=== PATIENT | male | born 1955 | race Caucasian/White ===

== ENCOUNTER 2017-04-07 05:55 | Emergency (ER) | payer OTHER ==
[~2017-04-07] VITALS: Ht 193 cm; Wt 127.0 kg
[~2017-04-07 05:55] MED LIST: ALBIPROI; ALBU.083IS; ALBU.083IS IH; ALBU90OI; ALBU90OI INH; ALBU90OI61 INH; ALUPENT; ATOR40TA PO; AZIT250 PO; AZIT500; BISA5EC PO; BUPR150ER; CEFD300 PO; CEPH500 PO; CITA20 PO; COMBIVENT; COMBIVENT RESPIM4 GM IH; CRUTCH3 USE; CYCL10 PO; CYPR4 PO; DESOX.05TG TOP; DIAZ5 PO; DOXY100 PO; Epipen0.3 MG/0.3 IM; FLUSAL5005; FOLI1 PO; Flonase 0.05% N16 GM; GUAI600T33 PO; HYDACE10B; HYDACE25S PR; HYDACE5 PO; HYDCOR2.5C PR; HYDR1TAB94 PO; IPRAOI INH; LINZESS145 MCG PO; MARIJUANA; METAOI; METAOI IH; METO50ER PO; NAPR500 PO; NEBULIZ; Norco 5-325 Ta1 EACH PO; OXYACE5T PO; OXYACE7.5T PO; OXYC5; OXYGEN; PRED10 PO; PRED20; PRED20 PO; PROCODE120 PO; Prednisone10 MG PO; Prednisone20 MG PO; Prednisone50 MG PO; RAMI5 PO; RANI150; TAMS.4ER PO; THEO200ERC PO; THEO400; THIA100 PO; Zithromax250 MG PO; Zithromax500 MG PO
[2017-04-07] MEDS ORDERED: Prednisone20 MG PO (07:00)
[2017-04-07] MEDS ORDERED: Norco 10-325 T1 EACH PO (07:00)
[2017-04-07] MEDS ORDERED: Zithromax250 MG PO (07:00)
== END 2017-04-07 07:37 | disposition home or self-care (01) ==
LOC: ER 05:55
DX: J44.1 Chronic obstructive pulmonary disease with (acute) exacerbation (principal); I10 Essential (primary) hypertension; F17.200 Nicotine dependence, unspecified, uncomplicated; J06.9 Acute upper respiratory infection, unspecified; Z88.8 Allergy status to other drugs, medicaments and biological substances; Z91.038 Other insect allergy status; Z79.899 Other long term (current) drug therapy; Z99.81 Dependence on supplemental oxygen
CPT/HCPCS: 71046; 99284

== ENCOUNTER 2017-11-10 09:00 | Emergency (ER) | payer OTHER ==
[~2017-11-10] VITALS: Ht 193 cm; Wt 119.8 kg
[~2017-11-10 09:00] MED LIST changes: +Norco 10-325 T1 EACH PO
[2017-11-10 09:59] LABS: BASOPHILS ABSOLUTE AUTO 0.07 K/mm3 (0.00-0.23); BASOPHILS PERCENT AUTO 2 % (0-2); EOSINOPHILS ABSOLUTE AUTO 0.49 K/mm3 (0.00-0.68); EOSINOPHILS PERCENT AUTO 11 % (0-6); Hemoglobin 15.1 g/dL (13.5-17.5); IMMATURE GRAN ABSOLUTE AUTO 0.01 K/mm3 (0.00-0.10); IMMATURE GRAN PERCENT AUTO 0 % (0-1); LYMPHOCYTES ABSOLUTE AUTO 1.37 K/mm3 (0.84-5.20); LYMPHOCYTES PERCENT AUTO 30 % (21-46); MONOCYTES ABSOLUTE AUTO 0.43 K/mm3 (0.16-1.47); MONOCYTES PERCENT AUTO 9 % (4-13); Mean Corpuscular HGB 33.3 pg (26.0-34.0); Mean Corpuscular HGB Conc 34.3 g/dL (31.5-36.5); Mean Corpuscular Volume 97 fL (80-100); NEUTROPHILS ABSOLUTE AUTO 2.26 K/mm3 (1.96-9.15); NEUTROPHILS PERCENT AUTO 49 % (41-73); Platelet Count 187 K/mm3 (150-400); RDW Coefficient Variation 12.1 % (11.7-14.2); Red Blood Cell Count 4.53 M/mm3 (4.30-5.90); White Blood Cell Count 4.63 K/mm3 (4.00-11.30)
[2017-11-10 10:18] LABS: Alanine Aminotransfer (ALT/SGP 31 U/L (12-78); Albumin, Blood 3.7 g/dL (3.4-5.0); Albumin/Globulin Ratio 1.2 (0.8-1.8); Alk Phos 90 U/L (50-136); Anion Gap 6 mmol/L (6-16); Aspartate Aminotrans (AST/SGOT 16 U/L (12-37); Bilirubin, Total 0.6 mg/dL (0.1-1.0); Blood Urea Nitrogen 10 mg/dL (8-24); Bun/Creatinine Ratio 16.3 (12.0-20.0); CO2, Blood 24 mmol/L (21-32); Calcium, Blood 8.4 mg/dL (8.5-10.1); Chloride, Blood 110 mmol/L (98-108); Creatinine, Blood 0.61 mg/dL (0.60-1.20); Globulin, Blood 3.1 g/dL (2.2-4.0); Glomerular Filtration Rate >60 (60-); Glucose, Blood 92 mg/dL (70-99); Sodium, Blood 140 mmol/L (136-145); Total Protein, Blood 6.8 g/dL (6.4-8.2)
[2017-11-10 11:38] LABS: Troponin I <0.015 ng/mL (0.000-0.040)
[2017-11-10] MEDS ORDERED: Zithromax250 MG PO (11:53)
[2017-11-10] MEDS ORDERED: Prednisone20 MG PO (11:53)
== END 2017-11-10 11:58 | disposition home or self-care (01) ==
LOC: ER 09:00
PROVIDERS: Emergency Medicine
DX: J44.1 Chronic obstructive pulmonary disease with (acute) exacerbation (principal); F17.210 Nicotine dependence, cigarettes, uncomplicated; Z88.8 Allergy status to other drugs, medicaments and biological substances; Z79.899 Other long term (current) drug therapy
CPT/HCPCS: 36415; 71045; 80053; 83880; 84484; 85025; 93005; 93010; 94640; 96374; 99285-25; J2930

== ENCOUNTER 2018-08-05 04:24 | Emergency (ER) | payer OTHER ==
[~2018-08-05] VITALS: Ht 188 cm; Wt 99.8 kg
[2018-08-05] MEDS ORDERED: Flector1 EACH TD (05:21)
== END 2018-08-05 05:41 | disposition home or self-care (01) ==
LOC: ER 04:24
DX: M54.6 Pain in thoracic spine (principal); M54.5 Low back pain; Z88.8 Allergy status to other drugs, medicaments and biological substances; Z79.899 Other long term (current) drug therapy; J44.9 Chronic obstructive pulmonary disease, unspecified; F17.210 Nicotine dependence, cigarettes, uncomplicated
CPT/HCPCS: 99283; A9270-GY

== ENCOUNTER 2018-09-06 18:59 | Emergency (ER) | payer OTHER ==
[~2018-09-06] VITALS: Ht 193 cm; Wt 127.0 kg
[~2018-09-06 18:59] MED LIST changes: +Flector1 EACH TD
[2018-09-06] MEDS ORDERED: FURO20 PO (20:11)
[2018-09-06] MEDS ORDERED: BENADRYL25 MG PO (20:15)
[2018-09-06] MEDS ORDERED: Pepcid20 MG PO (20:15)
[2018-09-16] MEDS ORDERED: THEO300ERA PO (10:48)
[2018-09-16] MEDS ORDERED: COMBIVENT RESPIM4 GM (10:48)
[2018-09-16] MEDS ORDERED: ALBU2.5V5 (10:48)
[2018-09-16] MEDS ORDERED: ALBU90OI (10:48)
[2018-09-16] MEDS ORDERED: PREG75 (10:49)
[2018-09-16] MEDS ORDERED: AMLO5 PO (10:49)
[2018-09-16] MEDS ORDERED: BUDE6HFA INH (10:49)
[2018-09-16] MEDS ORDERED: COMBIVENT RESPIM4 GM INH (10:49)
[2018-09-16] MEDS ORDERED: Flonase 0.05% N16 GM (10:49)
[2018-09-16] MEDS ORDERED: EPIPEN0.3 MG/0.3 (10:49)
== END 2018-09-06 20:25 | disposition home or self-care (01) ==
LOC: ER 18:59
DX: L23.7 Allergic contact dermatitis due to plants, except food (principal); Z88.8 Allergy status to other drugs, medicaments and biological substances; F17.210 Nicotine dependence, cigarettes, uncomplicated
CPT/HCPCS: 96372; 99282-25; J3301; Q0163

== ENCOUNTER 2018-09-08 07:04 | Emergency (ER) | payer OTHER ==
[~2018-09-08] VITALS: Ht 193 cm; Wt 127.0 kg
[~2018-09-08 07:04] MED LIST changes: +BENADRYL25 MG PO; +FURO20 PO; +Pepcid20 MG PO
[2018-09-16] MEDS ORDERED: ALBU90OI (10:48)
[2018-09-16] MEDS ORDERED: COMBIVENT RESPIM4 GM (10:48)
[2018-09-16] MEDS ORDERED: THEO300ERA PO (10:48)
[2018-09-16] MEDS ORDERED: ALBU2.5V5 (10:48)
[2018-09-16] MEDS ORDERED: PREG75 (10:49)
[2018-09-16] MEDS ORDERED: BUDE6HFA INH (10:49)
[2018-09-16] MEDS ORDERED: AMLO5 PO (10:49)
[2018-09-16] MEDS ORDERED: EPIPEN0.3 MG/0.3 (10:49)
[2018-09-16] MEDS ORDERED: Flonase 0.05% N16 GM (10:49)
[2018-09-16] MEDS ORDERED: COMBIVENT RESPIM4 GM INH (10:49)
== END 2018-09-08 08:35 | disposition home or self-care (01) ==
LOC: ER 07:04
DX: L23.7 Allergic contact dermatitis due to plants, except food (principal); J44.9 Chronic obstructive pulmonary disease, unspecified; F17.210 Nicotine dependence, cigarettes, uncomplicated
CPT/HCPCS: 94640; 99283-25; Q0163

== ENCOUNTER 2018-09-23 11:09 | Day surgery (SDC) | payer OTHER ==
[~2018-09-23] VITALS: Ht 193 cm; Wt 124.6 kg
[~2018-09-23 11:09] MED LIST changes: +ALBU2.5V5; +AMLO5 PO; +BUDE6HFA INH; +COMBIVENT RESPIM4 GM; +COMBIVENT RESPIM4 GM INH; +EPIPEN0.3 MG/0.3; +PREG75; +THEO300ERA PO
== END 2018-09-23 13:45 | disposition home or self-care (01) ==
LOC: ORSCSDS 11:09
PROVIDERS: Internal Medicine Gastroenterology
PROC: 0DBM8ZX Excision of Descending Colon, Via Natural or Artificial Opening Endoscopic, Diagnostic (ICD-10-PCS; principal; 2018-09-23 12:45)
PROC: 0DBK8ZX Excision of Ascending Colon, Via Natural or Artificial Opening Endoscopic, Diagnostic (ICD-10-PCS; principal; 2018-09-23 12:45)
PROC: 0DBP8ZX Excision of Rectum, Via Natural or Artificial Opening Endoscopic, Diagnostic (ICD-10-PCS; principal; 2018-09-23 12:45)
DX: Z12.11 Encounter for screening for malignant neoplasm of colon (principal); D12.2 Benign neoplasm of ascending colon; D12.4 Benign neoplasm of descending colon; K62.1 Rectal polyp; K64.8 Other hemorrhoids; K57.30 Diverticulosis of large intestine without perforation or abscess without bleeding; Z86.010 Personal history of colon polyps; Z83.71 Family history of colonic polyps; J44.9 Chronic obstructive pulmonary disease, unspecified; G47.33 Obstructive sleep apnea (adult) (pediatric); K21.9 Gastro-esophageal reflux disease without esophagitis; F17.210 Nicotine dependence, cigarettes, uncomplicated; I10 Essential (primary) hypertension; Z79.899 Other long term (current) drug therapy
CPT/HCPCS: 88305; J2704; J7120

== ENCOUNTER 2018-12-23 12:49 | Emergency (ER) | payer OTHER ==
[~2018-12-23] VITALS: Ht 193 cm; Wt 127.0 kg
[2018-12-23 13:27] LABS: BASOPHILS ABSOLUTE AUTO 0.06 K/mm3 (0.00-0.23); BASOPHILS PERCENT AUTO 1 % (0-2); EOSINOPHILS ABSOLUTE AUTO 0.23 K/mm3 (0.00-0.68); EOSINOPHILS PERCENT AUTO 2 % (0-6); Hematocrit 48.7 % (37.0-53.0); Hemoglobin 16.4 g/dL (13.5-17.5); IMMATURE GRAN ABSOLUTE AUTO 0.15 K/mm3 (0.00-0.10); IMMATURE GRAN PERCENT AUTO 2 % (0-1); LYMPHOCYTES ABSOLUTE AUTO 2.02 K/mm3 (0.84-5.20); LYMPHOCYTES PERCENT AUTO 20 % (21-46); MONOCYTES ABSOLUTE AUTO 0.94 K/mm3 (0.16-1.47); MONOCYTES PERCENT AUTO 9 % (4-13); Mean Corpuscular HGB 33.8 pg (26.0-34.0); Mean Corpuscular HGB Conc 33.7 g/dL (31.5-36.5); Mean Corpuscular Volume 100 fL (80-100); Mean Platelet Volume 11.1 fL (9.1-12.4); NEUTROPHILS ABSOLUTE AUTO 6.79 K/mm3 (1.96-9.15); NEUTROPHILS PERCENT AUTO 67 % (41-73); Platelet Count 226 K/mm3 (150-400); RDW Coefficient Variation 12.5 % (11.7-14.2); RDW Standard Deviation 46.5 fL (35.1-46.3); Red Blood Cell Count 4.85 M/mm3 (4.30-5.90); White Blood Cell Count 10.19 K/mm3 (4.00-11.30)
[2018-12-23] MEDS ORDERED: ALBU3IS INH (13:52)
[2018-12-23 13:53] LABS: Alanine Aminotransfer (ALT/SGP 45 U/L (12-78); Albumin, Blood 4.1 g/dL (3.4-5.0); Albumin/Globulin Ratio 1.3 (0.8-1.8); Alk Phos 102 U/L (50-136); Anion Gap 4 mmol/L (6-16); Aspartate Aminotrans (AST/SGOT 25 U/L (12-37); Bilirubin, Total 1.6 mg/dL (0.1-1.0); Blood Urea Nitrogen 10 mg/dL (8-24); Bun/Creatinine Ratio 13.4 (12.0-20.0); CO2, Blood 27 mmol/L (21-32); Chloride, Blood 109 mmol/L (98-108); Creatinine, Blood 0.74 mg/dL (0.60-1.20); Globulin, Blood 3.1 g/dL (2.2-4.0); Glomerular Filtration Rate >60 (60-); Glucose, Blood 89 mg/dL (70-99); Potassium, Blood 3.5 mmol/L (3.5-5.5); Sodium, Blood 140 mmol/L (136-145); Total Protein, Blood 7.2 g/dL (6.4-8.2)
[2018-12-23] MEDS ORDERED: POTA10T PO (13:55)
[2018-12-23] MEDS ORDERED: FUROSEMIDE20 MG PO (13:55)
[2018-12-23] MEDS ORDERED: ALLO100 PO (13:56)
[2018-12-23] MEDS ORDERED: IBUP800 PO (14:06)
[2018-12-23] MEDS ORDERED: Norco 5-325 Ta1 EACH PO (14:06)
[2018-12-23] MEDS ORDERED: Robaxin-750750 MG PO (14:06)
== END 2018-12-23 14:43 | disposition home or self-care (01) ==
LOC: ER 12:49
PROVIDERS: Physician Assistant
DX: S06.9X9A Unspecified intracranial injury with loss of consciousness of unspecified duration, initial encounter (principal); S16.1XXA Strain of muscle, fascia and tendon at neck level, initial encounter; S96.912A Strain of unspecified muscle and tendon at ankle and foot level, left foot, initial encounter; W11.XXXA Fall on and from ladder, initial encounter; Z88.8 Allergy status to other drugs, medicaments and biological substances; Z91.013 Allergy to seafood; Z79.899 Other long term (current) drug therapy; J44.9 Chronic obstructive pulmonary disease, unspecified; F17.210 Nicotine dependence, cigarettes, uncomplicated
CPT/HCPCS: 36415; 70450; 72125; 73630; 80053; 85025; 96374; 96375; 99284-25; J2405; J3010; L0160

== ENCOUNTER 2018-12-28 09:34 | Emergency (ER) | payer OTHER ==
[~2018-12-28] VITALS: Ht 190.5 cm; Wt 127.0 kg
[~2018-12-28 09:34] MED LIST changes: +ALBU3IS INH; +ALLO100 PO; +FUROSEMIDE20 MG PO; +IBUP800 PO; +POTA10T PO; +Robaxin-750750 MG PO
[2018-12-28] MEDS ORDERED: Norco 5-325 Ta1 EACH PO (10:28)
== END 2018-12-28 10:38 | disposition home or self-care (01) ==
LOC: ER 09:34
DX: S29.9XXA Unspecified injury of thorax, initial encounter (principal); W11.XXXA Fall on and from ladder, initial encounter; Z88.8 Allergy status to other drugs, medicaments and biological substances; Z79.899 Other long term (current) drug therapy; J44.9 Chronic obstructive pulmonary disease, unspecified; J45.909 Unspecified asthma, uncomplicated; F17.210 Nicotine dependence, cigarettes, uncomplicated
CPT/HCPCS: 71046; 99283-25

== ENCOUNTER 2019-03-09 15:25 | Emergency (ER) | payer OTHER ==
[~2019-03-09] VITALS: Ht 190.5 cm; Wt 127.0 kg
[2019-03-09] MEDS ORDERED: PREG75 PO (16:27)
[2019-03-09] MEDS ORDERED: ABAT250V (16:28)
[2019-03-09 16:55] LABS: BASOPHILS ABSOLUTE AUTO 0.08 K/mm3 (0.00-0.23); BASOPHILS PERCENT AUTO 1 % (0-2); EOSINOPHILS ABSOLUTE AUTO 0.35 K/mm3 (0.00-0.68); EOSINOPHILS PERCENT AUTO 4 % (0-6); Hematocrit 46.7 % (37.0-53.0); Hemoglobin 16.1 g/dL (13.5-17.5); IMMATURE GRAN ABSOLUTE AUTO 0.04 K/mm3 (0.00-0.10); IMMATURE GRAN PERCENT AUTO 0 % (0-1); LYMPHOCYTES PERCENT AUTO 18 % (21-46); MONOCYTES ABSOLUTE AUTO 0.75 K/mm3 (0.16-1.47); MONOCYTES PERCENT AUTO 8 % (4-13); Mean Corpuscular HGB 33.4 pg (26.0-34.0); Mean Corpuscular HGB Conc 34.5 g/dL (31.5-36.5); Mean Corpuscular Volume 97 fL (80-100); Mean Platelet Volume 10.7 fL (9.1-12.4); NEUTROPHILS PERCENT AUTO 69 % (41-73); Platelet Count 212 K/mm3 (150-400); RDW Standard Deviation 43.3 fL (35.1-46.3); Red Blood Cell Count 4.82 M/mm3 (4.30-5.90); White Blood Cell Count 9.02 K/mm3 (4.00-11.30)
[2019-03-09 17:20] LABS: Alanine Aminotransfer (ALT/SGP 38 U/L (12-78); Albumin, Blood 3.8 g/dL (3.4-5.0); Albumin/Globulin Ratio 1.2 (0.8-1.8); Alk Phos 114 U/L (50-136); Anion Gap 4 mmol/L (6-16); Aspartate Aminotrans (AST/SGOT 15 U/L (12-37); Bilirubin, Total 0.8 mg/dL (0.1-1.0); Blood Urea Nitrogen 11 mg/dL (8-24); Bun/Creatinine Ratio 16.7 (12.0-20.0); CO2, Blood 25 mmol/L (21-32); Calcium, Blood 8.7 mg/dL (8.5-10.1); Chloride, Blood 112 mmol/L (98-108); Creatinine, Blood 0.66 mg/dL (0.60-1.20); Globulin, Blood 3.2 g/dL (2.2-4.0); Glomerular Filtration Rate >60 (60-); Glucose, Blood 86 mg/dL (70-99); Potassium, Blood 3.4 mmol/L (3.5-5.5); Sodium, Blood 141 mmol/L (136-145); Troponin I <0.015 ng/mL (0.000-0.040)
== END 2019-03-09 19:00 | disposition home or self-care (01) ==
LOC: ER 15:25
PROVIDERS: Physician Assistant
DX: R07.9 Chest pain, unspecified (principal); R26.81 Unsteadiness on feet; J44.9 Chronic obstructive pulmonary disease, unspecified; F17.210 Nicotine dependence, cigarettes, uncomplicated; Z88.8 Allergy status to other drugs, medicaments and biological substances; Z91.030 Bee allergy status; Z79.51 Long term (current) use of inhaled steroids; Z79.899 Other long term (current) drug therapy
CPT/HCPCS: 36415; 70450; 80053; 84443; 84484; 85025; 93005; 93010; 99284-25

== ENCOUNTER 2019-04-23 05:34 | Day surgery (SDC) | payer OTHER ==
[~2019-04-23] VITALS: Ht 193 cm; Wt 135.0 kg
[~2019-04-23 05:34] MED LIST changes: +ABAT250V; +Aspir 8181 MG PO; +PREG75 PO
--- NOTE | 2019-04-23 09:37 | NUR ---
LACW SITE STABLE WITH INTACT DRESSING; NO HEMATOMA, NO BLEEDING, NO REDNESS. PT DENIES CHEST PAIN. PT DRINKING ORANGE JUICE WITH CALL LIGHT IN REACH AND WATCHING TV.
[2019-04-23] MEDS ORDERED: THEO200ERC PO (14:35)
--- NOTE | 2019-04-23 14:52 | NUR ---
PT ARRIVAL... PT ARRIVED ON UNIT APROX 1400. PT IS A&Ox4 AND IND IN THE ROOM. PT IS S/P PACEMAKER. PT C/O OF 4/10 PAIN TO THE LEFT UPPER CHEST WALL FROM THE PROCEDURE. THE SITE HAS SMALL BROWN/YELLOW DRAINAGE, NO BLOOD IS NOTED. NO SWELLING/HEMATOMA IS NOTED. PT IS HYPERTENSIVE AT THIS TIME. WILL RECHECK. WILL CONTINUE TO MONITOR.
--- NOTE | 2019-04-23 18:23 | NUR ---
SHIFT SUMMARY... NO ACUTE NEGATIVE CHANGES NOTED SINCE PT ARRIVED. PT'S BP HAS IMPROVED FROM 173/102 TO 136/91. PT DENIES CHEST PAIN/PRESSURE BUT HAS PAIN AT THE PACER SITE. NO CHANGES TO THE DRESSING, THERE ARE STILL 2 SMALL DIME SIZE YELLOW/BROWN SPOTS. PT HAS BEEN IND IN THE ROOM. PER DR. BANUELOS, PT CAN D/C HOME AFTER SECOND CHEST XRAY, DRESSING CHANGE AND SECOND DOSE OF ANTIBIOTICS. CALL LIGHT IN REACH, WILL CONTINUE TO MONITOR UNTIL REPORT IS GIVEN TO ONCOMING RN.
--- NOTE | 2019-04-23 20:30 | NUR ---
Assumed care Pt s/p pacer, sling to L arm, LCW site visualized with off going RN. Site WNL, drainage noted to center of dressing, tenderness throughout LCW per pt. Medicated per emar. Offered ice, pt declines. Pt up independant in room, ambulating steadily. Pt able to make needs known, uses call light appropriately. No acute concerns to note. VSS. See shift assessment for detailed assessment.
--- NOTE | 2019-04-24 05:50 | NUR ---
Shift Summary Pt with no acute events overnight. Painful to LCW, able to sleep for short amount of time on and off this shift. S/p pacer, 100% paced, site c/d/i. Per dr. amin, change dressing today with 4x4 gauze and tape. Pt compliant with L arm restriction, sling in place. NO acute concerns to note. Pt with no changes from initial shift assessment. Abx infused per orders. Will continue to montior.
--- NOTE | 2019-04-24 07:24 | NUR ---
ASSUMED CARE: STAFF IN ROOM TO INTERROGATE PACER WITH NO CHANGES OR NEEDS FOUND. DRESSING IN TACT WITH IODINE BUT NO BLOOD NOTED. NO ACUTE NEEDS OR CONCERNS AT THIS TIME.
[2019-04-24] MEDS ORDERED: METO25 PO (10:48)
--- NOTE | 2019-04-24 11:08 | NUR ---
DR CAMARA CAME TO SEE PT AND INSPECTED WOUND SITE. DRESSING CHANGED WITH FURTHER SUPPLIES PROVIDED. IV DC'D WNL. DISCUSSED CARE OF WOUND SITE AND INSTRUCTED PT ON ACTIVITY LIMITATIONS WITH LEFT ARM. PT WEARING SLING AND VERBALIZES UNDERSTANDING. STATES HE HAS PROBLEMS WITH KIDNEY FUNCTION WHICH IS WHY HE HAS BEEN TAKING [facility]. CALL TO DR CAMARA, AWAITING CALL BACK. PT DID NOT WANT TO WAIT FOR PRESCRIPTION BUT WANTS CALL EITHER WAY TO DETERMINE DR'S PLANS FOR PAIN MANAGEMENT. WILL CALL WHEN HEAR BACK. AMBULATORY UPON DISCHARGE. DENIES FURTHER NEEDS
--- NOTE | 2019-04-24 11:44 | NUR ---
DR CAMARA CAME BY TO WRITE SCRIPT FOR PAIN MEDS. CALL TO PT AND LEFT MESSAGE WITH HIS SO THEY WOULD BE AWARE TO COME PICK IT UP
== END 2019-04-24 11:02 | disposition home or self-care (01) ==
LOC: MHTC 05:34 → ICUW 13:51 → PCU 13:57 → MHTC 04-24 11:02
DX: I49.5 Sick sinus syndrome (principal); I10 Essential (primary) hypertension; E66.9 Obesity, unspecified; G47.33 Obstructive sleep apnea (adult) (pediatric); F17.210 Nicotine dependence, cigarettes, uncomplicated; J44.9 Chronic obstructive pulmonary disease, unspecified; Z99.81 Dependence on supplemental oxygen; Z99.89 Dependence on other enabling machines and devices; Z79.51 Long term (current) use of inhaled steroids; Z79.899 Other long term (current) drug therapy; Z68.36 Body mass index [BMI] 36.0-36.9, adult; Z79.82 Long term (current) use of aspirin
CPT/HCPCS: 33208; 71045; 71046; 94640; 94660; 94762; 99152; 99153; A9270; A9270-GY; C1785; C1898; J0690; J1644; J2250; J3010; J7030; J7040; J7050

== ENCOUNTER 2019-10-16 16:20 | Observation (INO) | payer OTHER ==
[~2019-10-16] VITALS: Ht 193 cm; Wt 139.6 kg
[~2019-10-16 16:20] MED LIST changes: -ALBU3IS INH; -ALLO100 PO; -AMLO5 PO; -Aspir 8181 MG PO; -BUDE6HFA INH; -COMBIVENT RESPIM4 GM INH; -FUROSEMIDE20 MG PO; +METO25 PO; -POTA10T PO; -PREG75 PO
[2019-10-16 16:40] LABS: BASOPHILS ABSOLUTE AUTO 0.05 K/mm3 (0.00-0.23); BASOPHILS PERCENT AUTO 1 % (0-2); EOSINOPHILS ABSOLUTE AUTO 0.31 K/mm3 (0.00-0.68); EOSINOPHILS PERCENT AUTO 5 % (0-6); Hematocrit 38.3 % (37.0-53.0); Hemoglobin 12.8 g/dL (13.5-17.5); IMMATURE GRAN ABSOLUTE AUTO 0.08 K/mm3 (0.00-0.10); IMMATURE GRAN PERCENT AUTO 1 % (0-1); LYMPHOCYTES ABSOLUTE AUTO 1.48 K/mm3 (0.84-5.20); LYMPHOCYTES PERCENT AUTO 22 % (21-46); MONOCYTES ABSOLUTE AUTO 0.64 K/mm3 (0.16-1.47); MONOCYTES PERCENT AUTO 10 % (4-13); Mean Corpuscular HGB 33.5 pg (26.0-34.0); Mean Corpuscular HGB Conc 33.4 g/dL (31.5-36.5); Mean Corpuscular Volume 100 fL (80-100); Mean Platelet Volume 10.8 fL (9.1-12.4); NEUTROPHILS ABSOLUTE AUTO 4.21 K/mm3 (1.96-9.15); NEUTROPHILS PERCENT AUTO 62 % (41-73); Platelet Count 197 K/mm3 (150-400); RDW Coefficient Variation 12.6 % (11.7-14.2); RDW Standard Deviation 46.5 fL (35.1-46.3); Red Blood Cell Count 3.82 M/mm3 (4.30-5.90); White Blood Cell Count 6.77 K/mm3 (4.00-11.30)
[2019-10-16 17:00] LABS: Alanine Aminotransfer (ALT/SGP 42 U/L (12-78); Albumin, Blood 3.5 g/dL (3.4-5.0); Albumin/Globulin Ratio 1.2 (0.8-1.8); Alk Phos 101 U/L (50-136); Anion Gap 4 mmol/L (6-16); Aspartate Aminotrans (AST/SGOT 25 U/L (12-37); Bilirubin, Total 0.5 mg/dL (0.1-1.0); Blood Urea Nitrogen 14 mg/dL (8-24); Bun/Creatinine Ratio 15.8 (12.0-20.0); CO2, Blood 26 mmol/L (21-32); Calcium, Blood 8.4 mg/dL (8.5-10.1); Chloride, Blood 111 mmol/L (98-108); Creatinine, Blood 0.89 mg/dL (0.60-1.20); Globulin, Blood 2.9 g/dL (2.2-4.0); Glomerular Filtration Rate >60 (60-); Glucose, Blood 109 mg/dL (70-99); Potassium, Blood 3.9 mmol/L (3.5-5.5); Sodium, Blood 141 mmol/L (136-145); Total Protein, Blood 6.4 g/dL (6.4-8.2); Troponin I <0.015 ng/mL (0.000-0.040)
[2019-10-16] MEDS ORDERED: ALBU2.5V5 NEB (17:52)
[2019-10-16] MEDS ORDERED: Isosorbide Mono60 MG PO (17:53)
[2019-10-16] MEDS ORDERED: FLUTICASONE PRO16 GM (17:53)
[2019-10-16] MEDS ORDERED: FUROSEMIDE20 MG PO (17:55)
[2019-10-16] MEDS ORDERED: BUPR150ER PO (17:55)
[2019-10-16] MEDS ORDERED: IPRAT-ALBUT 0.5-3 ML NEB (17:56)
[2019-10-16] MEDS ORDERED: NITROGLYCERIN0.4 M3 SL (17:57)
[2019-10-16] MEDS ORDERED: PANTOPRAZOLE SO40 M2 PO (17:58)
[2019-10-16] MEDS ORDERED: ATOR40TA PO (17:58)
[2019-10-16] MEDS ORDERED: PLAVIX75 MG PO (17:58)
[2019-10-16] MEDS ORDERED: SPIR25 PO (17:59)
[2019-10-16] MEDS ORDERED: AMLODIPINE BESY10 MG PO (17:59)
[2019-10-16] MEDS ORDERED: ALLO100 PO (18:00)
[2019-10-16] MEDS ORDERED: THEO300ERC PO (18:01)
[2019-10-16] MEDS ORDERED: Bisoprolol Fuma10 MG PO (18:01)
[2019-10-16] MEDS ORDERED: SYMBICORT 160-4.6 GM INH (18:01)
[2019-10-16] MEDS ORDERED: Ventolin/Prove6.7 GM INH (18:03)
[2019-10-16] MEDS ORDERED: POTCHL20ER PO (18:03)
[2019-10-16] MEDS ORDERED: COMBIVENT RESPIM4 G1 INH (18:05)
[2019-10-16] MEDS ORDERED: AMLODIPINE BESYL5 MG PO (18:09)
[2019-10-16] MEDS ORDERED: Aspir 8181 MG PO (18:09)
[2019-10-16] MEDS ORDERED: LINZESS145 MCG PO (18:31)
[2019-10-16] MEDS ORDERED: PREG75 PO (18:31)
[2019-10-17 00:48] LABS: BASOPHILS ABSOLUTE AUTO 0.05 K/mm3 (0.00-0.23); BASOPHILS PERCENT AUTO 1 % (0-2); EOSINOPHILS ABSOLUTE AUTO 0.27 K/mm3 (0.00-0.68); EOSINOPHILS PERCENT AUTO 5 % (0-6); Hematocrit 37.3 % (37.0-53.0); Hemoglobin 12.2 g/dL (13.5-17.5); IMMATURE GRAN ABSOLUTE AUTO 0.06 K/mm3 (0.00-0.10); IMMATURE GRAN PERCENT AUTO 1 % (0-1); LYMPHOCYTES ABSOLUTE AUTO 1.68 K/mm3 (0.84-5.20); LYMPHOCYTES PERCENT AUTO 29 % (21-46); MONOCYTES ABSOLUTE AUTO 0.58 K/mm3 (0.16-1.47); MONOCYTES PERCENT AUTO 10 % (4-13); Mean Corpuscular HGB 32.7 pg (26.0-34.0); Mean Corpuscular HGB Conc 32.7 g/dL (31.5-36.5); Mean Corpuscular Volume 100 fL (80-100); NEUTROPHILS ABSOLUTE AUTO 3.19 K/mm3 (1.96-9.15); NEUTROPHILS PERCENT AUTO 55 % (41-73); Platelet Count 172 K/mm3 (150-400); RDW Coefficient Variation 12.6 % (11.7-14.2); RDW Standard Deviation 46.7 fL (35.1-46.3); Red Blood Cell Count 3.73 M/mm3 (4.30-5.90); White Blood Cell Count 5.83 K/mm3 (4.00-11.30)
[2019-10-17 01:02] LABS: International Normalized Ratio 0.94; Prothrombin Time Results 10.1 Sec (9.7-11.5)
[2019-10-17 01:16] LABS: Alanine Aminotransfer (ALT/SGP 41 U/L (12-78); Albumin, Blood 3.1 g/dL (3.4-5.0); Albumin/Globulin Ratio 1.1 (0.8-1.8); Alk Phos 93 U/L (50-136); Anion Gap 3 mmol/L (6-16); Aspartate Aminotrans (AST/SGOT 26 U/L (12-37); Bilirubin, Total 0.5 mg/dL (0.1-1.0); Blood Urea Nitrogen 13 mg/dL (8-24); Bun/Creatinine Ratio 14.1 (12.0-20.0); CHOL/HDL RATIO 2.7; CO2, Blood 28 mmol/L (21-32); Calcium, Blood 8.3 mg/dL (8.5-10.1); Chloride, Blood 112 mmol/L (98-108); Cholesterol 109 mg/dL (50-200); Creatinine, Blood 0.93 mg/dL (0.60-1.20); Globulin, Blood 2.8 g/dL (2.2-4.0); Glomerular Filtration Rate >60 (60-); Glucose, Blood 88 mg/dL (70-99); HDL Cholesterol 40 mg/dL (>39); LDL/HDL RATIO 1.5; Low Density Lipoprotein Chol 59 mg/dL (0-110); Potassium, Blood 4.2 mmol/L (3.5-5.5); Sodium, Blood 143 mmol/L (136-145); Total Protein, Blood 5.9 g/dL (6.4-8.2); Triglycerides 52 mg/dL (30-160); Very Low Density Lipoprot Chol 10 mg/dL (6-32)
--- NOTE | 2019-10-17 06:11 | NUR ---
SHIFT SUMMARY PATIENT ALERT AND ORIENTED X4. ARRIVED TO THE MEDICAL FLOOR VIA STRETCHER. ABLE TO INDEPENDENTLY AMBULATE AROUND HIS ROOM WITH NO ISSUE. PATIENT HAD NO COMPLAINTS OF CHEST PAIN, REQUESTED 2 NEBULIZER TREATMENTS OVERNIGHT AND WORE 2 LITERS OF O2 VIA NASAL CANULA TO SLEEP. PATIENT MEDICATED FOR BACK PAIN PER EMAR. TELE IN PLACE. IV PATENT AND FLUSHED. BED IN LOWEST POSITION WITH WHEELS LOCKED. CALL LIGHT WITHIN REACH. REPORT GIVEN TO ONCOMING RN.
--- NOTE | 2019-10-17 07:35 | NUR ---
ASKED IF PT NEEDED TO BE NPO FOR CARDIOLOGY. ADVISED PATIENT FEELING BETTER AND WANTS TO GO HOME. NPO FOR NOW. PATIENT ADVISED.
--- NOTE | 2019-10-17 11:20 | NUR ---
PATIENT ASKS MULTIPLE TIMES TO EVERY STAFF MEMBER THAT SEES HIM ABOUT HIS MORNING MEDS ESPECIALLY THEODUR EVEN AFTER ADVISED THAT I WOULD SEE IF SIGNALER DOES NOT WANT HIM TO HAVE. PROCEDURE NOT TO BE DONE TODAY. ASK IF CAN GIVE MORNING MEDS THAT ARE NOW ORDERED FOR TOMORROW NOW. OK TO ORDER ONE TIME DOSE FOR TODAY--PLAVIX,THEODUR AND ALLOPURINOL
--- NOTE | 2019-10-17 18:23 | NUR ---
ALERT. ORIENTED. AMBULATORY IN THE HALLWAY W/STEADY GAIT. DENIES ANY CHEST DISCOMFORT. MEDICATED FOR CHRONIC BACK PAIN W/GOOD RELIEF. AWARE NPO AFTER MIDNITE FOR PROCEDURE TOMORROW.UNLABORED RESPIRATIONS. TELE ON AND SR AT 61 PER TECH. NO ACUTE CHANGES. WCTM
--- NOTE | 2019-10-17 18:52 | NUR ---
C/O LEFT LAT DISCOMFORT "CRAMPING". DENIES NAUSEA AT THIS TIME. PAIN NON RADIATING. SOME SOB. VSS. CAN NOT REPRODUCE PAIN. 6(1-10). STARING TO EASY UP AFTER FIRST NTG.
--- NOTE | 2019-10-17 18:58 | NUR ---
CHEST DISCOMFORT 1-2(1-10) AFTER ONE NTG.
--- NOTE | 2019-10-17 22:45 | NUR ---
PHYSICIAN COMMUNICATION CONTACTED THE VASCULAR SURGEON PHYSICIAN, DR FONTENOT, AT 2236 TO NOTIFY HIM THAT THIS RN HAD BEEN ALERTED TO A TELEMETRY EVENT THAT THE PATIENT HAD. THE STATE ARCHIVIST, ELY, HAD REPORTED THAT THE PATIENT HAD A RUN OF V BRIANNA FOR ABOUT 30 SECONDS. THIS RN ALSO NOTIFIED THE PHYSICIAN THAT THE PATIENT HAD A PACEMAKER IN [place] AND HAD NOT BEEN FEELING WELL SINCE THEN AND WAS ADMITTED TO THE HOSPITAL FOR CHEST PAIN. THE PATIEN WAS ASYMPTOMATIC WITH THE BRADYCARDIA AND WAS NOW IN SINUS RHYTHM AT 79 WITH PVC'S. NOTIFIED THE PHYSICIAN THAT THE PATIENT HAD AN ANGIOGRAM IN THE MORNING. NO NEW ORDERS GIVEN.
--- NOTE | 2019-10-18 01:51 | NUR ---
PATIENT COMPLAINED OF LEFT SIDED CHEST PAIN AT 7/10, STATES THE PAIN IS CONSTANT. PATIENT ALSO REPORTS HAVING SHORTNESS OF BREATH, DENIES ANY NAUSEA. NITROGLYGERIN GIVEN.
--- NOTE | 2019-10-18 01:58 | NUR ---
PATIENT STATES THAT HIS CHEST PAIN RESOLVED AFTER RECEIVING NITROGLYCERIN TABLET. STILL HAVING SOME SOB. WILL CONTINUE TO MONITOR.
--- NOTE | 2019-10-18 04:13 | NUR ---
PHYSICIAN COMMUNICATION @3622 CONTACTED THE ARCHITECTURAL DESIGN PROFESSOR PHYSICIAN DR MANUEL TO NOTIFY HIM THAT THE PATIENT HAD HIS SECOND EPISODE OF CHEST PAIN IN LESS THAN 12 HOURS AND THAT NITROGLYCERIN HAD BEEN GIVEN. THAT THE NITROGLYCERIN HAD RELIEVED THE PATIENT'S PAIN BUT THAT HE WAS STILL FEELING PRESSURE IN HIS CHEST AND SHORT OF BREATH. NO NEW ORDERS GIVEN.
[2019-10-18 05:42] LABS: BASOPHILS PERCENT AUTO 1 % (0-2); EOSINOPHILS ABSOLUTE AUTO 0.34 K/mm3 (0.00-0.68); EOSINOPHILS PERCENT AUTO 5 % (0-6); Hematocrit 44.9 % (37.0-53.0); Hemoglobin 15.1 g/dL (13.5-17.5); IMMATURE GRAN ABSOLUTE AUTO 0.04 K/mm3 (0.00-0.10); IMMATURE GRAN PERCENT AUTO 1 % (0-1); LYMPHOCYTES ABSOLUTE AUTO 1.62 K/mm3 (0.84-5.20); LYMPHOCYTES PERCENT AUTO 23 % (21-46); MONOCYTES ABSOLUTE AUTO 0.63 K/mm3 (0.16-1.47); MONOCYTES PERCENT AUTO 9 % (4-13); Mean Corpuscular HGB Conc 33.6 g/dL (31.5-36.5); Mean Corpuscular Volume 98 fL (80-100); Mean Platelet Volume 10.7 fL (9.1-12.4); NEUTROPHILS PERCENT AUTO 61 % (41-73); Platelet Count 209 K/mm3 (150-400); RDW Coefficient Variation 12.3 % (11.7-14.2); RDW Standard Deviation 44.2 fL (35.1-46.3); Red Blood Cell Count 4.58 M/mm3 (4.30-5.90); White Blood Cell Count 6.93 K/mm3 (4.00-11.30)
[2019-10-18 06:00] LABS: Alanine Aminotransfer (ALT/SGP 61 U/L (12-78); Albumin, Blood 3.9 g/dL (3.4-5.0); Albumin/Globulin Ratio 1.2 (0.8-1.8); Alk Phos 125 U/L (50-136); Anion Gap 5 mmol/L (6-16); Aspartate Aminotrans (AST/SGOT 37 U/L (12-37); Bilirubin, Total 1.2 mg/dL (0.1-1.0); Blood Urea Nitrogen 14 mg/dL (8-24); Bun/Creatinine Ratio 14.3 (12.0-20.0); CO2, Blood 28 mmol/L (21-32); Chloride, Blood 104 mmol/L (98-108); Creatinine, Blood 0.98 mg/dL (0.60-1.20); Globulin, Blood 3.3 g/dL (2.2-4.0); Glomerular Filtration Rate >60 (60-); Glucose, Blood 106 mg/dL (70-99); Sodium, Blood 137 mmol/L (136-145); Total Protein, Blood 7.2 g/dL (6.4-8.2)
--- NOTE | 2019-10-18 07:07 | NUR ---
PATIENT COMPLAINED OF 6/10 CHEST PAIN. TREATED PER EMAR. VITALS TAKEN.
--- NOTE | 2019-10-18 07:52 | NUR ---
SHIFT SUMMARY PATIENT ALERT AND ORIENTED. HAD AN EPISODE OVERNIGHT WHERE HE COMPLAINED OF CHEST PAIN AND SHORTNESS OF BREATH, NITRO GIVEN AND PAIN RESOLVED. PHYSICIAN NOTIFIED. PATIENT MEDICATED PER EMAR FOR CHRONIC BACK PAIN WELL. PATIENT CURRENTLY NPO EXCEPT FOR MEDS AND ICE CHIPS FOR AN ANGIOGRAM TODAY. IV PATENT AND FLUSHED. BED IN LOWEST POSITION WITH WHEELS LOCKED AND ALARM ON. CALL LIGHT WITHIN REACH. REPORT GIVEN TO ONCOMING RN.
== END 2019-10-18 17:32 | disposition home or self-care (01) ==
LOC: ER 16:20 → MEDS 16:21 → PCU 10-18 12:57
PROVIDERS: Emergency Medicine; ADMIT Internal Medicine
PROC: 4A023N7 Measurement of Cardiac Sampling and Pressure, Left Heart, Percutaneous Approach (ICD-10-PCS; principal; 2019-10-18)
PROC: B2111ZZ Fluoroscopy of Multiple Coronary Arteries using Low Osmolar Contrast (ICD-10-PCS; principal; 2019-10-18)
DX: R07.89 Other chest pain (principal); R60.0 Localized edema; I77.819 Aortic ectasia, unspecified site; I49.5 Sick sinus syndrome; J44.9 Chronic obstructive pulmonary disease, unspecified; Z95.0 Presence of cardiac pacemaker; E66.9 Obesity, unspecified; F17.210 Nicotine dependence, cigarettes, uncomplicated; Z88.8 Allergy status to other drugs, medicaments and biological substances; Z79.899 Other long term (current) drug therapy; Z79.01 Long term (current) use of anticoagulants
CPT/HCPCS: 36415; 71046; 80053; 80061; 83880; 84443; 84484; 85025; 85610; 93005; 93010; 93306; 93458; 94640; 94760; 96372; 99152; 99153; 99285-25; A9270-GY; C1769; C1894; G0378; J1644; J1650; J2250; J3010; J7030; Q9967

== ENCOUNTER 2020-01-19 10:15 | Emergency (ER) | payer OTHER ==
[~2020-01-19] VITALS: Ht 193 cm; Wt 136.1 kg
[~2020-01-19 10:15] MED LIST changes: +ALBU2.5V5 NEB; +ALLO100 PO; +AMLODIPINE BESY10 MG PO; +AMLODIPINE BESYL5 MG PO; +Aspir 8181 MG PO; +BUPR150ER PO; +Bisoprolol Fuma10 MG PO; +COMBIVENT RESPIM4 G1 INH; +FLUTICASONE PRO16 GM; +FUROSEMIDE20 MG PO; +IPRAT-ALBUT 0.5-3 ML NEB; +Isosorbide Mono60 MG PO; +NITROGLYCERIN0.4 M3 SL; +PANTOPRAZOLE SO40 M2 PO; +PLAVIX75 MG PO; +POTCHL20ER PO; +PREG75 PO; +SPIR25 PO; +SYMBICORT 160-4.6 GM INH; +THEO300ERC PO; +Ventolin/Prove6.7 GM INH
[2020-01-19] MEDS ORDERED: KEFLEX500 MG PO (11:13)
== END 2020-01-19 11:26 | disposition home or self-care (01) ==
LOC: ER 10:15
DX: L03.032 Cellulitis of left toe (principal); S80.812A Abrasion, left lower leg, initial encounter; J44.9 Chronic obstructive pulmonary disease, unspecified; F17.210 Nicotine dependence, cigarettes, uncomplicated; Z79.899 Other long term (current) drug therapy; Z79.51 Long term (current) use of inhaled steroids; Z79.82 Long term (current) use of aspirin; Z88.8 Allergy status to other drugs, medicaments and biological substances; Z91.030 Bee allergy status; W17.89XA Other fall from one level to another, initial encounter
CPT/HCPCS: 73590; 99283-25

== ENCOUNTER 2020-07-17 06:53 | Emergency (ER) | payer MEDICARE, OTHER ==
[~2020-07-17] VITALS: Ht 190.5 cm; Wt 136.1 kg
[~2020-07-17 06:53] MED LIST changes: +KEFLEX500 MG PO
[2020-07-17 07:24] LABS: BASOPHILS ABSOLUTE AUTO 0.06 K/mm3 (0.00-0.23); BASOPHILS PERCENT AUTO 1 % (0-2); EOSINOPHILS ABSOLUTE AUTO 0.25 K/mm3 (0.00-0.68); EOSINOPHILS PERCENT AUTO 4 % (0-6); Hematocrit 42.3 % (37.0-53.0); Hemoglobin 14.7 g/dL (13.5-17.5); IMMATURE GRAN ABSOLUTE AUTO 0.05 K/mm3 (0.00-0.10); IMMATURE GRAN PERCENT AUTO 1 % (0-1); LYMPHOCYTES ABSOLUTE AUTO 1.34 K/mm3 (0.84-5.20); LYMPHOCYTES PERCENT AUTO 19 % (21-46); MONOCYTES PERCENT AUTO 8 % (4-13); Mean Corpuscular HGB Conc 34.8 g/dL (31.5-36.5); Mean Corpuscular Volume 98 fL (80-100); Mean Platelet Volume 10.7 fL (9.1-12.4); NEUTROPHILS ABSOLUTE AUTO 4.86 K/mm3 (1.96-9.15); NEUTROPHILS PERCENT AUTO 68 % (41-73); Platelet Count 203 K/mm3 (150-400); RDW Coefficient Variation 12.7 % (11.7-14.2); RDW Standard Deviation 46.5 fL (35.1-46.3); Red Blood Cell Count 4.32 M/mm3 (4.30-5.90); White Blood Cell Count 7.16 K/mm3 (4.00-11.30)
[2020-07-17 07:43] LABS: Alanine Aminotransfer (ALT/SGP 41 U/L (12-78); Albumin, Blood 3.7 g/dL (3.4-5.0); Albumin/Globulin Ratio 1.2 (0.8-1.8); Alk Phos 125 U/L (50-136); Anion Gap 4 mmol/L (6-16); Aspartate Aminotrans (AST/SGOT 15 U/L (12-37); Bilirubin, Total 1.1 mg/dL (0.1-1.0); Blood Urea Nitrogen 8 mg/dL (8-24); Bun/Creatinine Ratio 9.7 (12.0-20.0); CO2, Blood 26 mmol/L (21-32); Calcium, Blood 8.8 mg/dL (8.5-10.1); Chloride, Blood 109 mmol/L (98-108); Creatinine, Blood 0.82 mg/dL (0.60-1.20); Globulin, Blood 3.1 g/dL (2.2-4.0); Glomerular Filtration Rate >60 (60-); Glucose, Blood 98 mg/dL (70-99); Potassium, Blood 3.5 mmol/L (3.5-5.5); Sodium, Blood 139 mmol/L (136-145); Total Protein, Blood 6.8 g/dL (6.4-8.2); Troponin I <0.015 ng/mL (0.000-0.040)
[2020-07-17] MEDS ORDERED: Roxicodone5 MG PO (08:54)
== END 2020-07-17 09:05 | disposition home or self-care (01) ==
LOC: ER 06:53
PROVIDERS: Emergency Medicine
DX: M54.6 Pain in thoracic spine (principal); J44.9 Chronic obstructive pulmonary disease, unspecified; Z79.899 Other long term (current) drug therapy
CPT/HCPCS: 36415; 71045; 80053; 83880; 84484; 85025; 93005; 93010; 99285-25; A9270

== ENCOUNTER 2020-07-31 04:51 | Emergency (ER) | payer MEDICARE, OTHER ==
[~2020-07-31] VITALS: Ht 193 cm; Wt 129.3 kg
[~2020-07-31 04:51] MED LIST changes: +Roxicodone5 MG PO
[2020-07-31 05:57] LABS: BASOPHILS ABSOLUTE AUTO 0.06 K/mm3 (0.00-0.23); BASOPHILS PERCENT AUTO 1 % (0-2); EOSINOPHILS ABSOLUTE AUTO 0.24 K/mm3 (0.00-0.68); EOSINOPHILS PERCENT AUTO 3 % (0-6); Hematocrit 41.9 % (37.0-53.0); Hemoglobin 14.1 g/dL (13.5-17.5); IMMATURE GRAN ABSOLUTE AUTO 0.05 K/mm3 (0.00-0.10); IMMATURE GRAN PERCENT AUTO 1 % (0-1); LYMPHOCYTES ABSOLUTE AUTO 1.04 K/mm3 (0.84-5.20); LYMPHOCYTES PERCENT AUTO 14 % (21-46); MONOCYTES ABSOLUTE AUTO 0.61 K/mm3 (0.16-1.47); MONOCYTES PERCENT AUTO 8 % (4-13); Mean Corpuscular HGB 33.3 pg (26.0-34.0); Mean Corpuscular HGB Conc 33.7 g/dL (31.5-36.5); Mean Corpuscular Volume 99 fL (80-100); Mean Platelet Volume 11.4 fL (9.1-12.4); NEUTROPHILS ABSOLUTE AUTO 5.47 K/mm3 (1.96-9.15); NEUTROPHILS PERCENT AUTO 73 % (41-73); Platelet Count 176 K/mm3 (150-400); RDW Coefficient Variation 12.8 % (11.7-14.2); RDW Standard Deviation 46.5 fL (35.1-46.3); Red Blood Cell Count 4.23 M/mm3 (4.30-5.90); White Blood Cell Count 7.47 K/mm3 (4.00-11.30)
[2020-07-31 06:34] LABS: Alanine Aminotransfer (ALT/SGP 42 U/L (12-78); Albumin, Blood 3.4 g/dL (3.4-5.0); Albumin/Globulin Ratio 1.1 (0.8-1.8); Alk Phos 110 U/L (50-136); Anion Gap 5 mmol/L (6-16); Aspartate Aminotrans (AST/SGOT 20 U/L (12-37); Bilirubin, Total 0.4 mg/dL (0.1-1.0); Blood Urea Nitrogen 11 mg/dL (8-24); Bun/Creatinine Ratio 11.8 (12.0-20.0); CO2, Blood 25 mmol/L (21-32); Calcium, Blood 8.9 mg/dL (8.5-10.1); Chloride, Blood 112 mmol/L (98-108); Creatinine, Blood 0.93 mg/dL (0.60-1.20); Globulin, Blood 3.1 g/dL (2.2-4.0); Glomerular Filtration Rate >60 (60-); Glucose, Blood 97 mg/dL (70-99); Potassium, Blood 4.5 mmol/L (3.5-5.5); Sodium, Blood 142 mmol/L (136-145); Total Protein, Blood 6.5 g/dL (6.4-8.2); Troponin I <0.015 ng/mL (0.000-0.040)
[2020-07-31] MEDS ORDERED: HYDR1TAB94 PO (07:52)
== END 2020-07-31 08:00 | disposition home or self-care (01) ==
LOC: ER 04:51
PROVIDERS: Emergency Medicine
DX: R10.12 Left upper quadrant pain (principal); J44.9 Chronic obstructive pulmonary disease, unspecified; F17.210 Nicotine dependence, cigarettes, uncomplicated; Z79.82 Long term (current) use of aspirin; Z79.899 Other long term (current) drug therapy; Z88.8 Allergy status to other drugs, medicaments and biological substances
CPT/HCPCS: 36415; 71045; 74176; 80053; 83690; 83880; 84484; 85025; 93005; 93010; 96374; 96375; 99285-25; J1885; J2405; J3010

== ENCOUNTER 2020-08-02 01:15 | Emergency (ER) | payer MEDICARE, OTHER ==
[2020-08-02 07:22] LABS: Blood Urea Nitrogen 14 mg/dL (8-24); Bun/Creatinine Ratio 14.6 (12.0-20.0); CO2, Blood 25 mmol/L (21-32); Calcium, Blood 8.9 mg/dL (8.5-10.1); Creatinine, Blood 0.96 mg/dL (0.60-1.20); Glomerular Filtration Rate >60 (60-); Glucose, Blood 103 mg/dL (70-99); Potassium, Blood 4.2 mmol/L (3.5-5.5)
[2020-08-02 07:25] LABS: BASOPHILS ABSOLUTE AUTO 0.04 K/mm3 (0.00-0.23); BASOPHILS PERCENT AUTO 1 % (0-2); EOSINOPHILS ABSOLUTE AUTO 0.33 K/mm3 (0.00-0.68); EOSINOPHILS PERCENT AUTO 5 % (0-6); Hematocrit 42.5 % (37.0-53.0); Hemoglobin 14.3 g/dL (13.5-17.5); IMMATURE GRAN ABSOLUTE AUTO 0.04 K/mm3 (0.00-0.10); IMMATURE GRAN PERCENT AUTO 1 % (0-1); LYMPHOCYTES ABSOLUTE AUTO 1.39 K/mm3 (0.84-5.20); LYMPHOCYTES PERCENT AUTO 22 % (21-46); MONOCYTES ABSOLUTE AUTO 0.59 K/mm3 (0.16-1.47); MONOCYTES PERCENT AUTO 9 % (4-13); Mean Corpuscular HGB 33.6 pg (26.0-34.0); Mean Corpuscular HGB Conc 33.6 g/dL (31.5-36.5); Mean Corpuscular Volume 100 fL (80-100); Mean Platelet Volume 11.5 fL (9.1-12.4); NEUTROPHILS ABSOLUTE AUTO 3.89 K/mm3 (1.96-9.15); NEUTROPHILS PERCENT AUTO 62 % (41-73); Platelet Count 188 K/mm3 (150-400); RDW Coefficient Variation 12.7 % (11.7-14.2); RDW Standard Deviation 46.6 fL (35.1-46.3); Red Blood Cell Count 4.26 M/mm3 (4.30-5.90); White Blood Cell Count 6.28 K/mm3 (4.00-11.30)
[2020-08-02 07:41] LABS: Alanine Aminotransfer (ALT/SGP 42 U/L (12-78); Albumin, Blood 3.6 g/dL (3.4-5.0); Albumin/Globulin Ratio 1.2 (0.8-1.8); Alk Phos 112 U/L (50-136); Anion Gap 7 mmol/L (6-16); Aspartate Aminotrans (AST/SGOT 23 U/L (12-37); Bilirubin, Total 0.6 mg/dL (0.1-1.0); Chloride, Blood 111 mmol/L (98-108); Globulin, Blood 3.1 g/dL (2.2-4.0); Sodium, Blood 140 mmol/L (136-145); Total Protein, Blood 6.7 g/dL (6.4-8.2)
== END 2020-08-02 03:56 | disposition home or self-care (01) ==
LOC: ER 01:15
PROVIDERS: Emergency Medicine
DX: F41.9 Anxiety disorder, unspecified (principal); R07.9 Chest pain, unspecified; F17.200 Nicotine dependence, unspecified, uncomplicated; Z79.01 Long term (current) use of anticoagulants; Z88.8 Allergy status to other drugs, medicaments and biological substances; Z79.899 Other long term (current) drug therapy
CPT/HCPCS: 80053; 83690; 85025; 93005; 93010; 96374; 99284-25; J2060